=== PATIENT | male | born 1965 | race Caucasian/White ===

== ENCOUNTER 2023-03-11 19:07 | Outpatient (RCR) | payer OTHER, SELFPAY | END 2023-03-12 07:27 | disposition home or self-care (01) | LOC: RPT 19:07 | PROVIDERS: ATTENDING PHYSICIAN Orthopaedic Surgery; FAMILY PHYSICIAN Internal Medicine | DX: Z47.89 Encounter for other orthopedic aftercare (principal); M54.50 Low back pain, unspecified; Z73.6 Limitation of activities due to disability; M79.604 Pain in right leg; M62.81 Muscle weakness (generalized); R26.89 Other abnormalities of gait and mobility; Z98.1 Arthrodesis status | CPT/HCPCS: 97110; 97112; 97530 ==

== ENCOUNTER → 2023-11-05 06:26 | Day surgery (SDC) | payer OTHER, SELFPAY | LOC: GI 06:26 | PROVIDERS: ATTENDING PHYSICIAN Internal Medicine Gastroenterology | DX: K57.30 Diverticulosis of large intestine without perforation or abscess without bleeding (principal); K64.8 Other hemorrhoids; K62.89 Other specified diseases of anus and rectum; Z86.010 Personal history of colon polyps | CPT/HCPCS: 45378 ==

== ENCOUNTER → 2023-12-25 07:57 | Outpatient (REF) | payer OTHER, SELFPAY | LOC: RAD 07:57 | PROVIDERS: ATTENDING PHYSICIAN Orthopaedic Surgery Hand Surgery; FAMILY PHYSICIAN Internal Medicine | DX: Z01.818 Encounter for other preprocedural examination (principal) | CPT/HCPCS: 93005 ==

== ENCOUNTER → 2024-04-03 08:09 | Outpatient (REF) | payer OTHER, SELFPAY | LOC: RAD 08:09 | PROVIDERS: ATTENDING PHYSICIAN Student in an Organized Health Care Education/Training Program; FAMILY PHYSICIAN Internal Medicine | DX: Z96.652 Presence of left artificial knee joint (principal); M25.562 Pain in left knee | CPT/HCPCS: 78315; A9503 ==

== ENCOUNTER → 2024-06-05 11:13 | Outpatient (REF) | payer OTHER, SELFPAY | LOC: RAD 11:13 | PROVIDERS: ATTENDING PHYSICIAN Physician Assistant Surgical; FAMILY PHYSICIAN Internal Medicine | DX: M25.511 Pain in right shoulder (principal) | CPT/HCPCS: 73030 ==

== ENCOUNTER → 2024-06-24 07:18 | Outpatient (REF) | payer OTHER, SELFPAY ==
[2024-06-24 08:31] LABS: % Basophils 1.8 % (0-2); % Eosinophils 18.3 % (0-6); % Immature Granulocytes 0.3 % (0-0.5); % Lymphocytes 28.6 % (20.5-51.1); % Monocytes 11.9 % (1.7-9.3); % Neutrophils 39.1 % (42.2-75.2); Absolute Basophils 0.1 10^3/uL (0-0.2); Absolute Eosinophils 1.3 10^3/uL (0-0.7); Absolute Lymphocytes 2.1 10^3/uL (1.2-3.4); Absolute Monocytes 0.9 10^3/uL (0.1-0.6); Absolute Neutrophils 2.8 10^3/uL (1.4-6.5); Hematocrit 42.4 % (39.0-52.0); Hemoglobin 14.6 g/dL (13.0-18.0); Mean Corp Hgb Conc. 34.4 g/dL (33.0-37.0); Mean Corpuscular Hgb 30.2 pg (27.0-31.0); Mean Corpuscular Volume 87.8 fL (80.0-94.0); Mean Platelet Volume 11.4 fL (7.4-10.4); Nucleated Red Blood Cells % 0 % (-); Platelet Count 180 10^3/uL (130-400); Red Blood Cell Count 4.83 10^6/uL (4.70-6.10); Red Cell Dist. Width 12.3 % (11.5-14.5); White Blood Cell Count 7.2 10^3/uL (4.8-10.8)
[2024-06-24 09:05] LABS: Blood Urea Nitrogen 22 mg/dl (9-20); Calcium 9.2 mg/dl (8.4-10.2); Carbon Dioxide 26 mmol/L (22-30); Chloride 108 mmol/L (98-107); Glucose 98 mg/dl (70-99); Potassium 4.6 mmol/L (3.5-5.1); Sodium 146 mmol/L (135-145); eGFR > 60.00
== END ==
LOC: REG 07:18
PROVIDERS: ATTENDING PHYSICIAN Orthopaedic Surgery Hand Surgery
DX: Z01.818 Encounter for other preprocedural examination (principal)
CPT/HCPCS: 36415; 80048; 85025; 93005

== ENCOUNTER 2024-08-03 10:00 | Outpatient (RCR) | payer OTHER, SELFPAY | END 2024-08-03 23:59 | disposition home or self-care (01) | LOC: RPT 10:00 | PROVIDERS: ATTENDING PHYSICIAN Orthopaedic Surgery Hand Surgery; FAMILY PHYSICIAN Internal Medicine | DX: Z47.89 Encounter for other orthopedic aftercare (principal); M25.511 Pain in right shoulder; Z73.6 Limitation of activities due to disability | CPT/HCPCS: 97010; 97110; 97112; 97140; 97161 ==

== ENCOUNTER 2024-09-11 10:12 | Outpatient (RCR) | payer OTHER, SELFPAY | END 2024-09-11 23:59 | disposition home or self-care (01) | LOC: RPT 10:12 | PROVIDERS: ATTENDING PHYSICIAN Orthopaedic Surgery Hand Surgery; FAMILY PHYSICIAN Internal Medicine | DX: Z47.89 Encounter for other orthopedic aftercare (principal); M25.511 Pain in right shoulder; Z73.6 Limitation of activities due to disability | CPT/HCPCS: 97010; 97110; 97112; 97140 ==

== ENCOUNTER 2024-10-11 06:50 | Outpatient (RCR) | payer OTHER, SELFPAY | END 2024-10-11 23:59 | disposition home or self-care (01) | LOC: RPT 06:50 | PROVIDERS: ATTENDING PHYSICIAN Orthopaedic Surgery Hand Surgery; FAMILY PHYSICIAN Internal Medicine | DX: Z47.89 Encounter for other orthopedic aftercare (principal); M25.511 Pain in right shoulder; Z73.6 Limitation of activities due to disability | CPT/HCPCS: 97110; 97140 ==

== ENCOUNTER 2024-10-31 15:59 | Outpatient (RCR) | payer OTHER, SELFPAY | END 2024-11-01 14:51 | disposition home or self-care (01) | LOC: RPT 15:59 | PROVIDERS: ATTENDING PHYSICIAN Orthopaedic Surgery Hand Surgery; FAMILY PHYSICIAN Internal Medicine | DX: Z47.89 Encounter for other orthopedic aftercare (principal); M25.511 Pain in right shoulder; Z73.6 Limitation of activities due to disability | CPT/HCPCS: 97110 ==

== ENCOUNTER 2024-11-29 12:16 | Inpatient (IN) | payer OTHER, SELFPAY ==
[2024-11-13 08:49] LABS: Hematocrit 43.4 % (39.0-52.0); Hemoglobin 15.3 g/dL (13.0-18.0); Mean Corp Hgb Conc. 35.3 g/dL (33.0-37.0); Mean Corpuscular Volume 87.5 fL (80.0-94.0); Platelet Count 187 10^3/uL (130-400); Red Cell Dist. Width 12.5 % (11.5-14.5)
[2024-11-13 09:20] LABS: Glycohemoglobin (HgbA1c) 5.1 % (4.0-5.6)
[2024-11-13 09:37] LABS: ALT (SGPT) 81 U/L (0-50); AST (SGOT) 39 U/L (17-59); Albumin 4.9 g/dl (3.5-5.0); Alkaline Phosphatase 74 U/L (38-126); Blood Urea Nitrogen 18 mg/dl (9-20); Calcium 9.5 mg/dl (8.4-10.2); Carbon Dioxide 23 mmol/L (22-30); Chloride 109 mmol/L (98-107); Glucose 98 mg/dl (70-99); Potassium 4.5 mmol/L (3.5-5.1); Sodium 143 mmol/L (135-145); Total Protein 7.9 g/dl (6.3-8.2); eGFR > 60.00
[2024-11-13 14:13] VITALS: BMI 31.6
--- NOTE | 2024-11-14 13:57 | CM ---
Addendum entered by Margarita Arevalo RN 11/15/24 08:49:
CM spoke with patient's regarding discharge planning. Patient's stated that she feels confused regarding patient's medication and is requesting a nursing visit at home to go over medication. CM advised that patient is planned for
outpatient PT and would not be homebound for VN. CM reassured that nursing would review all medications prior to patient being discharged.
CM will remain available as needed.
Original Note:
Demographics: confirmed
Living situation: with
Support Person Post Operatively:
VN: hx, but not currently on service
SNF: no
Outpatient: appointment made at [facility] 12/01
Has patient purchased required equipment: CM advised patient to contact OS for walker
PCP: Active
Pharmacy: [facility]
Post Operative Discharge Plan: Home with outpatient PT.
[2024-11-27 13:25] VITALS: BMI 31.6
[2024-11-29] VITALS (11 sets, daily range): BP systolic 90–122; BP diastolic 56–85; BMI 31.6
[2024-11-29] MEDS: NORMOSOL-R/PLASMALYTE-A 1000 IV (12:52)
[2024-11-29] MEDS: TYLENOL 650 MG PO (12:52)
[2024-11-29] MEDS: CELEBREX 200 MG PO (12:52)
[2024-11-29] MEDS: TRANSDERM-SCOP 1 PATCH TRANSDERM (13:25)
[2024-11-29] MEDS: EMEND 40 MG PO (13:25)
--- NOTE | 2024-11-29 14:37 | W.PN.UPDATE ---
Update Note
Progress Note Update
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
DVT prophylaxis - ASA, b/l venous foot pumps
RIYA, resolved with septoplasty - monitor O2
- IS
- Consider supplemental O2 HS
GERD - add Pepcid HS
HLD
Venous insufficiency with varicosities
FLD w/ mildly elevated transaminase
DDD
Spinal stenosis
IFG
Obesity, BMI 32.28
Pt would benefit from prophylactic Cefadroxil upon d/c
--- NOTE | 2024-11-29 18:13 | OR.RPT ---
Operative Report
Operative Report
Orthopaedic Surgery Operative Note
DATE OF OPERATION: 11/29/2024
PREOPERATIVE DIAGNOSES: Painful left right total knee arthroplasty, aseptic loosening
POSTOPERATIVE DIAGNOSES: Same
OPERATION PERFORMED:
Left revision total knee arthroplasty, both component (CPT 18634)
Left knee debridement and irrigation to bone (CPT 34756)
SURGEON: Mark Hernadez MD
ASSISTANTS: Kevin Craft PA-C who helped with patient and limb positioning and retraction
ANESTHESIA: Spinal
COMPLICATIONS: None.
ESTIMATED BLOOD LOSS: 100mL
DRAINS: None
TOURNIQUET TIME: 120 minutes.
SPECIMENS: NA
FINDINGS: Loosening of femoral and tibial components, extensive medial tibial osteolysis, extensive distal femoral osteolysis posteriorly and distally about medial femoral condyle and posteriorly about lateral femoral condyle
IMPLANTS:
- Karl Persona Revision Femur, size 9
- Karl Persona Revision tibia base plate, size E
- Karl Persona tibial augment 5mm medial
- Karl Persona trabecular metal tibial cone, size extra small
- Karl Persona femoral augments 15mm distal medial and 10mm distal lateral
- Karl Persona femoral augments 10mm posteromedial and 15mm posterolateral
- Karl Persona 12mm PS articular surface
- Karl 14mm x 75mm femoral cemented stem
- Karl 14mm x 75mm tibial cemented stem
- Cement restrictors, femoral and and tibial
- DJO [place] bone cement
INDICATIONS:
59-year-old with a history of left total knee arthroplasty performed about 12 years ago. He had progressive pain with ambulation and swelling. Infection work-up was low concern for prosthetic joint infection. Xrays showed signs concerning for tibial
loosening and bone scan showed findings concerning for loosening. We discussed treatment options. We discussed nonoperative treatments as well as the option of revision surgery. Shared decision was to proceed with revision total knee arthroplasty.
The patient understood the risks which included, but were not limited to, bleeding, fracture, infection, failure to relieve pain, more pain than preop, damage to blood vessels and nerves, need for reoperation, mechanical failure of the implants,
wound healing problems, stiffness, instability, blood clot, pulmonary embolism, myocardial infarction, pneumonia, arrhythmia, CVA, and . The patient accepted these risks and wished to proceed. All questions were answered, and informed consent
was obtained.
PROCEDURE IN DETAIL: The patient was identified in the preoperative holding area. The left knee was identified as the operative site. The patient was taken in the operating room and placed in a supine position on the operating table. Spinal
anesthesia was performed. IV antibiotics and tranexamic acid were administered. An SCD was placed on the right lower extremity. A well-padded tourniquet was placed on the proximal thigh. All bony prominences were well padded. The operative leg was
prepped and draped in the usual sterile fashion.
We performed a surgical time-out. The limb was exsanguinated with an Esmarch bandage, then the tourniquet was inflated to 250 mmHg. The prior midline incision was excised. Dissection was carried down to the extensor mechanism and full thickness
flaps were raised to aide in exposure. A medial parapatellar arthrotomy was performed. Nodular synovitis was encountered throughout the suprapatellar pouch and medial and lateral gutters, consistent with particle associated inflammation. No
purulence was noted. Medial release was performed. Scar tissue was excised from the anterior portion of the tibia posterior to the patellar tendon. Care was taken not to damage the extensor mechanism. Medial and lateral gutters were exposed and
synovectomy was performed with care not to damage collateral ligaments.
The polyethylene spacer was removed with an osteotome. This was not worn. The femoral and tibial component surfaces were exposed with rongeurs. Flexible osteotome was used circumferentially around the femoral component. It was removed easily with
a bone tamp with minimal bone loss. The metaphyseal segments were intact with bone loss as noted above. Attention was turned to the tibia. The tibial tray was grossly loose and lifted up easily from the cement mantel. Care was taken not to damage
the femoral condyles during this process. The femoral and tibial bone was debrided of inflammatory tissue extensively.
An extamedullary cutting guide was used to perform a freshening cut just below the cement mantel surface perpendicular to mechanical axis of the tibia. Xrays were used to align the cut to remove more anterior bone and skyve posteriorly. The tibia
canal was reamed in line with the mechanical axis using x-rays and anatomic landmarks about the ankle. The tibia was sequentially reamed until good cortical purchase was achieved. Trial tibia was selected based on the explanted tibia. The tibia was
sized and the trial surface was pinned into place. Extra attention was paid to tibial rotation to ensure it was aligned with tibial tubercle. Keel punch and keel drill were used to prepare the tibia. The tibia was prepared for a tibial cone for
extra fixation. The tibial trial was assembled and impacted in place.
Attention was turned to the femur. A drill was used to identify the medullary canal. The femoral canal was reamed sequentially in line with mechanical axis until good purchase was achieved to set the anatomic axis. Joint line was assess on the
meniscal scar and patella. Distal femoral freshinging cut was performed on lateral femoral condyle to accept a 10mm augment and 15mm augment medially. The posterior femoral condyles were also cut based on the depth of the osteolytic defects. Trial
femur was impacted into place and need for augments was assessed. Rotation was assessed and was found to be in line with the transcondylar axis. In flexion, the femoral rotation was parallel with the tibial surface. Trial femur was assembled and
was impacted into place. The knee was trialed with sequential articular surfaces with good balance in flexion and extension. The patella tracked centrally without signs of wear or loosening.
The trial components were removed. The tibial and femoral components were assembled on the back table. Cement restrictors were placed into the femoral and tibial canal. The tibial cone was inserted. The femoral and tibial canals were irrigated and
cement was pressurized into the canal. The components were impacted into place. A trial articular surface was placed. The tourniquet was let down and meticulous hemostasis was achieved. A 3-minute dilute Betadine soak was performed. I copiously
irrigated with 3 L of saline. Once the cement was polymerized, the knee was trialed and the final articular surface was selected. Excess cement had been removed and any remaining flecks were removed. The final articular surface was inserted. The
knee was balanced in both flexion extension and the patella tracked centrally. A fresh drape was applied to the surgical field.
The arthrotomy was closed with 0-PDS. Once closed, an interarticular block was performed with local anesthetic with epi. The deep dermal layer was closed with 2-0 PDS, and the subcuticular skin was closed with 3-0 monocryl. A skin glue dressing was
applied to the skin in full flexion. Once this was completely dry, a sterile waterproof dressing was applied.
The patient awoke from anesthesia without any difficulties. The sponge and instrument counts were correct x2 at the end of the case.
Wil Hernadez MD
[2024-11-29] MEDS: NSS 1000 IV (19:30)
--- NOTE | 2024-11-29 19:45 | PTCARENOTE ---
11/29 Pt a 59 y/o M, arrived on 2S from PACU at 19:17 post Left Revision Total Knee Arthroplasty & Left Knee Debridement and Irrigation to bone. ANESTHESIA: Spinal EBL 100mL. PMH Back Pain, Dizziness, Numbness/tingling of arm/leg, Sciatica, Sleep
Apnea, HLD, Arthritis, Fractures, OA, Spinal Stenosis, TJR, Deviated Septum, H/H B/L, Impaired Vision. Pt bed in a low position, pain addressed, call light in reach.
[2024-11-29] MEDS: COLACE 100 MG PO (20:45)
[2024-11-29] MEDS: SENOKOT 17.2 MG PO (20:45)
[2024-11-29] MEDS: BACTROBAN 2% OINTMENT 1 APPLIC NASAL (20:45)
[2024-11-29] MEDS: DECADRON 4 MG PO (20:46)
[2024-11-29] MEDS: LIPITOR 10 MG PO (21:05)
[2024-11-29] MEDS: PEPCID 20 MG PO (21:05)
[2024-11-29] MEDS: NEURONTIN 300 MG PO (21:05)
[2024-11-29] MEDS: ANCEF 5 IV (21:05)
[2024-11-29] MEDS: ASPIRIN 325 MG PO ×2 (21:10→21:20)
[2024-11-29] MEDS: NORCO 5/325 2 TABLET PO (21:17)
[2024-11-29] MEDS: DILAUDID 0.5 MG IV (22:28)
[2024-11-30] VITALS (7 sets, daily range): BP systolic 86–115; BP diastolic 52–66; PULSE 66–94
[2024-11-30] MEDS: TYLENOL 650 MG PO ×2 (03:47→12:14)
[2024-11-30] MEDS: ANCEF 5 IV (05:09)
[2024-11-30] MEDS: COLACE 100 MG PO (08:14)
[2024-11-30] MEDS: DECADRON 4 MG PO (08:14)
[2024-11-30] MEDS: NEURONTIN 200 MG PO (08:14)
[2024-11-30] MEDS: ASPIRIN 325 MG PO (08:14)
[2024-11-30] MEDS: CELEBREX 200 MG PO (08:14)
[2024-11-30] MEDS: SENOKOT 17.2 MG PO (08:14)
[2024-11-30] MEDS: BACTROBAN 2% OINTMENT 1 APPLIC NASAL (08:15)
[2024-11-30] MEDS: LIDOCAINE 4% PATCH 2 PATCH TOPICAL (08:15)
[2024-11-30] MEDS: NSS 500 IV (08:15)
--- NOTE | 2024-11-30 11:40 | W.PN.ORTHO ---
Today's Communication / Plan
-
Await PT and OT recs.
Continue to monitor BP, especially w/ change in pain meds.
Await UA w/ culture results.
D/c possible for later today if clinically stable.
Assessment
.
Distal Motor Intact: Yes
Dressing:
Clean, dry and intact.
Assessment:
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
DVT prophylaxis - ASA, b/l venous foot pumps
Post-surgical pain - Will switch [place] to Oxycodone prn. Tolerated in June 2024
- Standing order Tylenol
- Add Lidocaine patches
- Continue Decadron, Celebrex, and Gabapentin HS. Caution w/ higher dosages of Gabapentin -> did cause dizziness in the past at TID dosing.
Asymptomatic hypotension - likely multifactorial d/t dehydration, anesthesia, and timing of pain meds overnight
- IVF bolus provided. Oral hydration encouraged
- Midodrine for SBP <125
- Minimize opioids as able
- TEDs
- With measures above, orthostatic VS currently stable. Pt remaining asymptomatic
Burning w/ urination - likely 2* to straight cath last night
- Pt now urinating appropriately
- UA w/ culture to r/o UTI
RIYA, resolved with septoplasty - O2 stable on RA
- IS
- Consider supplemental O2 HS
GERD - add Pepcid HS
HLD
Venous insufficiency with varicosities
FLD w/ mildly elevated transaminase
DDD
Spinal stenosis
IFG
Obesity, BMI 32.28
Pt would benefit from prophylactic Cefadroxil upon d/c
Plan
.
Surgery / Date: Revision of L TKA w/ Dr Hernadez 11/29/24
DVT Prophylaxis: Aspirin
Activity:
Out of bed.
PT/OT
Discharge Plan: Home w/ Outpatient PT
Subjective
.
.:
Patient examined resting in bed.
Asymptomatic hypotension overnight, likely multifactorial.
Reports mild burning when urinating.
Vital Signs and Labs
.
Vital Signs and Labs:
Lab Results
11/13/24 07:45
11/13/24 07:45
Temp Pulse Resp BP Pulse Ox
98.4 F 84 16 92/52 97
11/30/24 07:35 11/30/24 07:35 11/30/24 07:35 11/30/24 08:00 11/30/24 07:35
Non-invasive Hgb result: 12.9
Physical Exam
-
HEENT: No pallor, cyanosis, or jaundice. Throat clear.
NECK: Supple. No JVD.
RESPIRATORY: Lungs clear to auscultation.
CVS: S1, S2 normal. RRR.�
ABDOMEN: Soft, non-tender. No distension. Obese.
EXTREMITIES: Expected post-surgical L knee edema. Strength equal, no calf pain with palpation/dorsiflexion. Calves soft.
OFFICE EQUIPMENT TECHNICIAN: AOx3. No focal deficits. mold sheet cleaner grossly intact
[2024-11-30] MEDS: ROXICODONE 10 MG PO (12:14)
[2024-11-30 12:38] LABS: Urine Character Clear (Clear)
--- NOTE | 2024-11-30 14:42 | W.PN.UPDATE ---
Update Note
Progress Note Update
UA WNL. Mild urinary burning likely 2* straight cath irritation. Tylenol for mild pain and Oxycodone for moderate-severe pain should help with this irritation overall.
Did well w/ PT and OT this afternoon. VS remaining stable.
D/c today since clinically stable.
--- NOTE | 2024-11-30 14:45 | W.DS.TRANS ---
DC Summary - [employer]house [employer]
-
Discharge Instructions:
Discharge Diagnosis/Procedures Mechanical failure of L TKA s/p Revision of L
TKA w/ Dr Hernadez 11/29/24
Diet Regular
Additional Diets Adequate hydration, minimize opioids, and wear
TEDs stockings to prevent low blood pressure/
dizziness.
Activity With Walker,As tolerated
Driving Restrictions Not until seen by your Dr
Bathing Restrictions OK to Shower
Other Services PT
Wound Care Leave dressing on until seen by surgeon's office
for follow-up.
Instructions:
Stand-Alone Forms: Total Hip/Knee Replacement D/C
Changes to Home Medications: Yes
Discharge Medications:
DC Medications w/original date entered in [employer]
multivitamin with minerals-folic acid 400 mcg-lycopene 370 mcg tablet (One-A-Day Men's 50 Plus) 1 tab PO DAILY Supplement 11/10/24
mupirocin 2 % topical ointment 1 applic topical BID infection prevention #1 tube 11/10/24
simvastatin 10 mg tablet 10 mg PO HS High Cholesterol 11/10/24
cefadroxil 500 mg capsule 500 mg PO BID infection prevention #14 caps 11/13/24
celecoxib 200 mg capsule 200 mg PO DAILY Anti-inflammatory #14 caps 11/13/24
dexamethasone 4 mg tablet 4 mg PO BID inflammation #6 tabs 11/13/24
famotidine 20 mg tablet 20 mg PO HS GI prophylaxis #30 tabs 11/13/24
gabapentin 300 mg capsule 300 mg PO HS sleep/pain #10 caps 11/13/24
ondansetron 4 mg disintegrating tablet 4 mg PO Q6H PRN n/v #20 tabs 11/13/24
Saccharomyces boulardii 250 mg capsule (Florastor) 250 mg PO BID #10 caps 11/30/24
acetaminophen 325 mg tablet 650 mg (2 x 325 mg) PO Q6H #30 tabs 11/30/24
aspirin 325 mg tablet 325 mg PO DAILY #30 tabs 11/30/24
docusate sodium 100 mg capsule 100 mg PO BID #30 caps 11/30/24
lidocaine 4 % topical patch 2 patch topical DAILY #15 ea 11/30/24
magnesium hydroxide 400 mg/5 mL oral suspension (Milk of Magnesia) 30 ml PO HS PRN constipation #3,780 mL 11/30/24
oxycodone 5 mg tablet 5 - 10 mg (1 - 2 x 5 mg) PO Q6H PRN moderate-severe pain #30 tabs 11/30/24
sennosides 8.6 mg tablet (Karina-vidhya) 17.2 mg (2 x 8.6 mg) PO BID #30 tabs 11/30/24
Home Medication Changes
cefadroxil 500 mg capsule 500 mg PO BID infection prevention #14 caps 11/13/24
celecoxib 200 mg capsule 200 mg PO DAILY Anti-inflammatory #14 caps 11/13/24
dexamethasone 4 mg tablet 4 mg PO BID inflammation #6 tabs 11/13/24
famotidine 20 mg tablet 20 mg PO HS GI prophylaxis #30 tabs 11/13/24
gabapentin 300 mg capsule 300 mg PO HS sleep/pain #10 caps 11/13/24
ondansetron 4 mg disintegrating tablet 4 mg PO Q6H PRN n/v #20 tabs 11/13/24
Saccharomyces boulardii 250 mg capsule (Florastor) 250 mg PO BID #10 caps 11/30/24
acetaminophen 325 mg tablet 650 mg (2 x 325 mg) PO Q6H #30 tabs 11/30/24
aspirin 325 mg tablet 325 mg PO DAILY #30 tabs 11/30/24
docusate sodium 100 mg capsule 100 mg PO BID #30 caps 11/30/24
lidocaine 4 % topical patch 2 patch topical DAILY #15 ea 11/30/24
magnesium hydroxide 400 mg/5 mL oral suspension (Milk of Magnesia) 30 ml PO HS PRN constipation #3,780 mL 11/30/24
oxycodone 5 mg tablet 5 - 10 mg (1 - 2 x 5 mg) PO Q6H PRN moderate-severe pain #30 tabs 11/30/24
sennosides 8.6 mg tablet (Karina-vidhya) 17.2 mg (2 x 8.6 mg) PO BID #30 tabs 11/30/24
Pending Results: No
== END 2024-11-30 15:28 | disposition home or self-care (01) | DRG 468 ==
LOC: 2 SOUTH 12:16
PROVIDERS: Physician Assistant; ADMITTING PHYSICIAN Orthopaedic Surgery; FAMILY PHYSICIAN Nurse Practitioner; REFERRING PHYSICIAN Internal Medicine Cardiovascular Disease
PROC: 0SPD0JZ Removal of Synthetic Substitute from Left Knee Joint, Open Approach (ICD-10-PCS; 2024-11-29)
PROC: 0SRD0J9 Replacement of Left Knee Joint with Synthetic Substitute, Cemented, Open Approach (ICD-10-PCS; 2024-11-29)
DX: T84.093A Other mechanical complication of internal left knee prosthesis, initial encounter (principal); I95.9 Hypotension, unspecified; G47.33 Obstructive sleep apnea (adult) (pediatric); K21.9 Gastro-esophageal reflux disease without esophagitis; E78.5 Hyperlipidemia, unspecified; I87.2 Venous insufficiency (chronic) (peripheral); M48.00 Spinal stenosis, site unspecified; E66.9 Obesity, unspecified; Z68.32 Body mass index [BMI] 32.0-32.9, adult; E86.0 Dehydration; K76.0 Fatty (change of) liver, not elsewhere classified; Y79.2 Prosthetic and other implants, materials and accessory orthopedic devices associated with adverse incidents; Z88.5 Allergy status to narcotic agent; Z96.651 Presence of right artificial knee joint
CPT/HCPCS: 36415; 73560; 80053; 81003; 83036; 85027; 86850; 86900; 86901; 87070; 93005; 97163; 97167